=== PATIENT | female | born 1975 | race Caucasian/White ===

== ENCOUNTER 2023-09-03 17:17 | Emergency (ER) | payer MEDICAID ==
[~2023-09-03] VITALS: Ht 165.1 cm; Wt 72.6 kg
[2023-09-03 17:41] VITALS: BP 135/70; PULSE 69; RESP 18; TEMP 97.9; O2SAT 100
[2023-09-03 19:26] VITALS: O2SAT 99
[2023-09-03 19:30] LABS: BASOPHILS # (AUTO) 0.1 K/uL (0.00-0.22); BASOPHILS % (AUTO) 1.5 % (0.0-2.0); EOSINOPHILS # (AUTO) 0.1 K/uL (0-0.4); EOSINOPHILS % (AUTO) 1.6 % (0.0-4.0); LYMPHOCYTES # (AUTO) 2.2 K/uL (2.5-16.5); LYMPHOCYTES % (AUTO) 45.3 % (20.5-51.1); MEAN CORPUSCULAR HEMOGLOBIN 16 pg (27-31); MEAN CORPUSCULAR HGB CONC 28 g/dL (33-37); MEAN CORPUSCULAR VOLUME 56.8 fL (80-94); MONOCYTES # (AUTO) 0.3 K/uL (0.8-1.0); MONOCYTES % (AUTO) 6.6 % (1.7-9.3); NEUTROPHILS # (AUTO) 2.2 K/uL (1.8-7.7); PLATELET COUNT (AUTO) 181 K/uL (140-450); RED BLOOD CELL COUNT(AUTO) 3.71 MIL/uL (4.20-5.40); RED CELL DISTRIBUTION WIDTH 19.9 % (11.6-13.7); WHITE BLOOD COUNT (AUTO) 4.8 K/uL (4.8-10.8)
[2023-09-03 19:36] LABS: HEMOGLOBIN 5.8 g/dL (12.0-16.0)
[2023-09-03 19:44] LABS: ANION GAP 10.7 (8-16); CALCIUM 8.4 mg/dL (8.5-10.1); CARBON DIOXIDE 25.9 mmol/L (21-32); CREATININE 0.6 mg/dL (0.6-1.3); POTASSIUM 3.6 mmol/L (3.5-5.1)
[2023-09-03 19:50] LABS: INR 0.97 (0.8-1.2); PARTIAL THROMBOPLASTIN TIME 22.3 secs (22-35.6); PROTHROMBIN TIME 10.2 secs (10.8-13.4)
[2023-09-03 21:05] VITALS: BP 138/70; PULSE 73; RESP 13; TEMP 98
[2023-09-03] MEDS ORDERED: FERR325E14 PO (21:50)
[2023-09-03 22:38] VITALS: O2SAT 98
== END 2023-09-04 00:32 | disposition home or self-care (01) ==
LOC: MED 17:17
DX: D64.9 Anemia, unspecified (principal); Z98.51 Tubal ligation status; Z79.899 Other long term (current) drug therapy
CPT/HCPCS: 36415; 36430; 80048; 85025; 85610; 85730; 86886; 86900; 86901; 86920; 99285; P9016

== ENCOUNTER 2023-12-04 15:15 | Emergency (ER) | payer SELFPAY ==
[~2023-12-04] VITALS: Ht 162.6 cm; Wt 72.6 kg
[~2023-12-04 15:15] MED LIST: FERR325E14 PO
[2023-12-04 15:20] VITALS: BP 141/81; PULSE 84; RESP 16; TEMP 98; O2SAT 100
[2023-12-04] MEDS: NACL 0.9% 1,000 ML IV SCH (16:07)
[2023-12-04 16:22] LABS: APPEARANCE,URINE CLOUDY (CLEAR); BILIRUBIN,URINE 1+ (NEGATIVE); BLOOD, URINE 3+ (NEGATIVE); COLOR,URINE RED (YELLOW); LEUKOCYTE ESTERASE ,URINE 1+ (NEGATIVE); NITRITE, URINE NEGATIVE (NEGATIVE); PROTEIN,URINE 1+ (NEGATIVE); UGLUCOSE TRACE (NEGATIVE); UROBILINOGEN,URINE 0.2 EU/dL (0.2 - 1)
[2023-12-04 16:23] LABS: BASOPHILS # (AUTO) 0.1 K/uL (0.00-0.22); BASOPHILS % (AUTO) 0.9 % (0.0-2.0); EOSINOPHILS # (AUTO) 0.1 K/uL (0-0.4); EOSINOPHILS % (AUTO) 1.3 % (0.0-4.0); HEMATOCRIT 29.7 % (36-48); HEMOGLOBIN 9.5 g/dL (12.0-16.0); LYMPHOCYTES # (AUTO) 2.3 K/uL (2.5-16.5); LYMPHOCYTES % (AUTO) 37.1 % (20.5-51.1); MEAN CORPUSCULAR HEMOGLOBIN 22 pg (27-31); MEAN CORPUSCULAR HGB CONC 32 g/dL (33-37); MEAN CORPUSCULAR VOLUME 70.2 fL (80-94); MONOCYTES # (AUTO) 0.5 K/uL (0.8-1.0); MONOCYTES % (AUTO) 7.6 % (1.7-9.3); NEUTROPHILS # (AUTO) 3.4 K/uL (1.8-7.7); NEUTROPHILS % (AUTO) 53.1 % (42.2-75.2); PLATELET COUNT (AUTO) 237 K/uL (140-450); RED BLOOD CELL COUNT(AUTO) 4.23 MIL/uL (4.20-5.40); RED CELL DISTRIBUTION WIDTH 17.6 % (11.6-13.7); WHITE BLOOD COUNT (AUTO) 6.3 K/uL (4.8-10.8)
[2023-12-04 16:30] LABS: ICTOTEST NEGATIVE (NEGATIVE)
[2023-12-04 16:30] LABS: ANION GAP 13.1 (8-16); CALCIUM 8.9 mg/dL (8.5-10.1); CARBON DIOXIDE 26.3 mmol/L (21-32); CREATININE 0.7 mg/dL (0.6-1.3); POTASSIUM 3.4 mmol/L (3.5-5.1)
[2023-12-04 16:33] LABS: BACTERIA,URINE FEW /HPF (None Seen); RBC,URINE 20-50 /HPF (0-5)
[2023-12-04 16:34] LABS: SQUAMOUS EPITHELIAL CELL,UR 0-3 (FEW) /LPF (0-3 (FEW))
[2023-12-04 16:36] LABS: ALBUMIN 3.2 g/dL (3.4-5.0); BILIRUBIN,DIRECT 0.1 mg/dL (0.0-0.3); TOTAL BILIRUBIN 0.2 mg/dL (0.0-1.0); TOTAL PROTEIN, SERUM 8.6 g/dL (6.4-8.2)
[2023-12-04 16:42] VITALS: O2SAT 100
[2023-12-04] MEDS ORDERED: MEDR10TA PO (18:37)
[2023-12-04] MEDS ORDERED: FERR-212 PO (18:46)
[2023-12-04 19:01] VITALS: BP 141/78; PULSE 79; RESP 16; TEMP 98; O2SAT 100
== END 2023-12-04 19:07 | disposition home or self-care (01) ==
LOC: MED 15:15
DX: N93.9 Abnormal uterine and vaginal bleeding, unspecified (principal); R42 Dizziness and giddiness; R53.1 Weakness; Z98.890 Other specified postprocedural states; Z98.51 Tubal ligation status; Z79.899 Other long term (current) drug therapy
CPT/HCPCS: 36415; 76830; 80048; 80076; 81001; 81025; 83690; 85025; 86886; 86900; 86901; 87086; 96360; 99284; J7030; Q0092